=== PATIENT | female | born 1985 ===

== ENCOUNTER 2017-02-06 23:45 | Emergency (ER) | payer SELFPAY ==
[2017-02-06 23:49] VITALS: BP 131/80; PULSE 108; TEMP 98; O2SAT 98
--- NOTE | 2017-02-07 00:02 | ED PDOC ---
HPI: Psych/Substance Abuse Time Seen by Provider: 02/07/17 00:00 Chief Complaint (Nursing): Alcohol Ingestion Chief Complaint (Provider): ETOH intoxication History Per: Patient, EMS Additional Complaint(s): To ED via BLS for evaluation of alcohol intoxication. Patient was found sleeping in the hallway of an apartment building. Past Medical History Reviewed: Nursing Documentation, Vital Signs Vital Signs: Last Vital Signs Temp 98.0 F 02/06/17 23:47 Pulse 108 H 02/06/17 23:47 Resp 108 H 02/06/17 23:47 BP 131/80 02/06/17 23:47 Pulse Ox 98 02/06/17 23:47 - Medical History PMH: No Chronic Diseases - Surgical History Surgical History: No Surg Hx - Family History Family History: States: No Known Family Hx - Living Arrangements Living Arrangements: With Family - Social History Current smoker - smoking cessation education provided: No Alcohol: None Drugs: Denies - Home Medications Home Medications: Ambulatory Orders Medication Instructions Recorded Famotidine [Pepcid] 20 mg PO DAILY #14 tab 01/17/17 Ondansetron ODT [Zofran ODT] 4 mg PO TID #12 odt 01/17/17 - Allergies Allergies/Adverse Reactions: Allergies Allergy/AdvReac Type Severity Reaction Status Date / Time No Known Allergies Allergy Verified 01/17/17 04:56 Review of Systems ROS Statement: Except As Marked, All Systems Reviewed And Found Negative Physical Exam - Reviewed Nursing Documentation Reviewed: Yes Vital Signs Reviewed: Yes - Physical Exam Appears: Positive for: Well, Non-toxic, No Acute Distress Head Exam: Positive for: ATRAUMATIC, NORMAL INSPECTION, NORMOCEPHALIC Skin: Positive for: Normal Color, Warm, DRY Eye Exam: Positive for: EOMI, Normal appearance, PERRL ENT: Positive for: Normal ENT Inspection Neck: Positive for: Normal, Painless ROM Cardiovascular/Chest: Positive for: Regular Rate, Rhythm Respiratory: Positive for: CNT, Normal Breath Sounds Gastrointestinal/Abdominal: Positive for: Normal Exam, Bowel Sounds, Soft Back: Positive for: Normal Inspection Extremity: Positive for: Normal ROM Neurologic/Psych: Positive for: Alert, Oriented - ECG O2 Sat by Pulse Oximetry: 98 Medical Decision Making Medical Decision Making: Labs resulted and reviewed with pt who demonstrated full understanding Disposition - Clinical Impression Clinical Impression: Alcohol use - Patient ED Disposition Is Patient to be Admitted: No - Disposition Disposition: Routine/Home Disposition Time: 01:00 Condition: STABLE Instructions: Alcohol Intoxication (ED) Forms: [employer] (Yoruba)
[2017-02-07 07:18] VITALS: RESP 19
== END 2017-02-07 07:30 | disposition home or self-care (01) ==
LOC: H.ER 23:45 → EDBD 23:45 → H.ER 02-07 07:30
DX: F10.10 Alcohol abuse, uncomplicated (principal); Y90.8 Blood alcohol level of 240 mg/100 ml or more
CPT/HCPCS: 82948; 84702; 96372; 99284; G0480; J1630; J2060

== ENCOUNTER 2017-02-16 18:58 | Emergency (ER) | payer MEDICAID ==
[2017-02-16 18:58] VITALS: BMI 31.8
[2017-02-16 19:02] VITALS: BP 109/90; PULSE 70; RESP 18; TEMP 97.9; O2SAT 99
[2017-02-16] MEDS ORDERED: Sodium Chloride 0.9% 1,000 ML IV STA (20:06)
[2017-02-16 20:52] LABS: BASO % 0.4 % (0.0-2.0); HEMATOCRIT 35.8 % (34.0-47.0); LYMPH # 1.1 K/uL (1.0-4.3); MEAN CELL VOLUME 95.5 fl (81.0-99.0); MEAN CORPUSCULAR HEMOGLOBIN 32.1 pg (27.0-31.0); MEAN CORPUSCULAR HGB CONC 33.6 g/dL (33.0-37.0); MEAN PLATELET VOLUME 9.8 fl (7.2-11.7); MONO # 0.8 K/uL (0.0-0.8); MONO % 7.8 % (0.0-10.0); NEUT # 8.1 K/uL (1.8-7.0); NEUT % 80.8 % (50.0-75.0); RED CELL DISTRIBUTION WIDTH 13.9 % (11.5-14.5)
[2017-02-16 20:59] LABS: ALB/GLOB RATIO 1.3 (1.0-2.1); ALKALINE PHOSPHATASE 100 U/L (38-126); ALT/SGPT 69 U/L (9-52); AST/SGOT 95 U/L (14-36); BILIRUBIN,TOTAL 0.6 mg/dl (0.2-1.3); BLOOD UREA NITROGEN 9 mg/dl (7-17); CALCIUM 9.5 mg/dL (8.4-10.2); CARBON DIOXIDE 25 mmol/L (22-30); CHLORIDE 102 mmol/L (98-107); GFR AFRICAN-AMERICAN > 60; GLUCOSE,RANDOM 122 mg/dL (65-105); LIPASE 65 U/L (23-300); POTASSIUM 3.4 MMOL/L (3.6-5.0); SODIUM 142 mmol/l (132-148); TOTAL PROTEIN 8.1 G/DL (6.3-8.2)
--- NOTE | 2017-02-16 21:52 | ED PDOC ---
HPI: Abdomen <Kristina Gaffney - Last Filed: 02/19/17 08:15> Chief Complaint (Provider): Abdominal Pain History Per: Patient History/Exam Limitations: no limitations Onset/Duration Of Symptoms: Hrs Current Symptoms Are (Timing): Still Present Location Of Pain/Discomfort: Epigastric (mid epigastric) Associated Symptoms: Nausea <Carmelita Anderson - Last Filed: 02/22/17 04:12> Time Seen by Provider: 02/16/17 19:15 Chief Complaint (Nursing): Abdominal Pain Additional Complaint(s): Patient is a 31 y/o female with a past medical history of gastritis and alcohol abuse who presents to the ED complaining of mid epigastric pain and nausea. She notes that the pain feels like typical pain associated with gastritis. Patient was in [facility] earlier today for gastritis exacerbation and was medicated and discharged with Pepcid and Zofran. She states that she still feels very nauseas and that she last drank alcohol two days ago. She denies any fever or diarrhea, and has not yet followed up with a specialist. Patient vomited bilious non bloody vomit after arrival to the ED. PCP: FAMILY PROVIDER, NO (Carmelita Anderson) Past Medical History <Kristina Gaffney - Last Filed: 02/19/17 08:15> Reviewed: Historical Data, Nursing Documentation, Vital Signs - Medical History PMH: Anxiety, Gastritis Denies: HIV, HTN, Seizures, Sexually Transmitted Disease Other PMH: Alcohol abuse - Surgical History Surgical History: No Surg Hx - Family History Family History: States: No Known Family Hx, Unknown Family Hx - Social History Alcohol: Occasional Drugs: Cannabis, Other - Immunization History Hx Tetanus Toxoid Vaccination: No Hx Influenza Vaccination: No Hx Pneumococcal Vaccination: No <Carmelita Anderson - Last Filed: 02/22/17 04:12> Vital Signs: Last Vital Signs Temp 97.9 F 02/16/17 19:01 Pulse 70 02/16/17 19:01 Resp 18 02/16/17 19:01 BP 109/90 02/16/17 19:01 Pulse Ox 99 02/21/17 19:47 - Home Medications Home Medications: Ambulatory Orders Medication Instructions Recorded Escitalopram [Lexapro] 10 mg PO DAILY #30 tab 02/20/17 Famotidine [Pepcid] 20 mg PO BID #60 tab 02/20/17 Gabapentin 300 mg PO TID #90 capsule 02/20/17 - Allergies Allergies/Adverse Reactions: Allergies Allergy/AdvReac Type Severity Reaction Status Date / Time pantoprazole [From Protonix] Allergy Verified 02/19/17 03:16 Review of Systems ROS Statement: Except As Marked, All Systems Reviewed And Found Negative Constitutional: Negative for: Fever Gastrointestinal: Positive for: Nausea, Vomiting, Abdominal Pain (mid epigastric ). Negative for: Diarrhea <Carmelita Anderson Y - Last Filed: 02/22/17 04:12> Physical Exam - Reviewed Nursing Documentation Reviewed: Yes Vital Signs Reviewed: Yes - Physical Exam Appears: Positive for: No Acute Distress Head Exam: Positive for: ATRAUMATIC, NORMOCEPHALIC Skin: Positive for: Normal Color, Warm, Dry Eye Exam: Positive for: Normal appearance, EOMI, PERRL Neck: Positive for: Normal, Painless ROM, Supple Cardiovascular/Chest: Positive for: Regular Rate, Rhythm. Negative for: Murmur Respiratory: Positive for: Normal Breath Sounds. Negative for: Respiratory Distress Gastrointestinal/Abdominal: Positive for: Soft, Tenderness (slight mid epigastric tenderness) Back: Positive for: Normal Inspection. Negative for: L CVA Tenderness, R CVA Tenderness, Vertebral Tenderness Extremity: Positive for: Normal ROM. Negative for: Pedal Edema, Deformity Neurologic/Psych: Positive for: Alert, Oriented (x3). Negative for: Motor/ Sensory Deficits <Carmelita Anderson Y - Last Filed: 02/22/17 04:12> - Laboratory Results Result Diagrams: 02/16/17 20:27 02/16/17 20:27 <Kristina Gaffney - Last Filed: 02/19/17 08:15> - Laboratory Results Result Diagrams: 02/16/17 20:27 02/16/17 20:27 - ECG O2 Sat by Pulse Oximetry: 99 (RA) Pulse Ox Interpretation: Normal <Carmelita Anderson Y - Last Filed: 02/22/17 04:12> Medical Decision Making <Kristina Gaffney - Last Filed: 02/19/17 08:15> <Carmelita Anderson Y - Last Filed: 02/22/17 04:12> Medical Decision Making: Time: 20:02 Initial Impression: abd pain rule out Gastritis Initial Plan: --Beta-HCG --CMP --Lipase --CBC --Zofran Inj 4mg IV Time: 20:49 --Pepcid --Zofran Inj 4mg IV Time: 21:54 --Dilaudid 0.5mg IVP pt feels better, tolerated po i nt ED. instructed on abnormal bloodwork and need for oupt GI Scribe Attestation: Documented by Ian Leone, acting as a scribe for Carmelita Anderson MD Provider Scribe Attestation: All medical record entries made by the Scribe were at my direction and personally dictated by me. I have reviewed the chart and agree that the record accurately reflects my personal performance of the history, physical exam, medical decision making, and the department course for this patient. I have also personally directed, reviewed, and agree with the discharge instructions and disposition. (Carmelita Anderson) Disposition - Disposition Disposition Time: 08:17 <Kristina Gaffney - Last Filed: 02/19/17 08:15> - Patient ED Disposition Is Patient to be Admitted: No Counseled Patient/Family Regarding: Studies Performed, Diagnosis, Need For Followup - Disposition Disposition: Routine/Home Disposition Time: 22:00 <Carmelita Anderson - Last Filed: 02/22/17 04:12> - Clinical Impression Clinical Impression: Gastritis, Elevated LFTs, Alcohol abuse, Alcoholic gastritis, Hypokalemia due to loss of potassium - Disposition Referrals: [facility] [Outside] Bro BRADLEY,MD Erin [Medical Doctor] - Condition: IMPROVED Additional Instructions: follow up with your primary doctor in 1-2 days cotinue medications given to you at [facility] for nausea and pain you need to follow up with a specialist GI referral given for further management avoid alcohol spicy food and other triggers return to the ED with any worsening or concerning symptoms Instructions: Gastritis (ED) Forms: [employer] (Occitan) Decision To Admit - Pt Status Changed To: Hospital Disposition Of: Observation - . Bed Request Type: Med/Surg Admitting Physician: Luis Davis <Kristina Gaffney - Last Filed: 02/19/17 08:15> <Carmelita Anedrson - Last Filed: 02/22/17 04:12> - . Patient Diagnosis: Gastritis, Elevated LFTs, Alcohol abuse, Alcoholic gastritis, Hypokalemia due to loss of potassium
[2017-02-16] MEDS ORDERED: HYDROmorphone 0.5 mg/0.5 ml ISec IVP STA (21:54)
== END 2017-02-17 00:39 | disposition home or self-care (01) ==
LOC: H.ER 18:58
DX: K29.70 Gastritis, unspecified, without bleeding (principal); R94.5 Abnormal results of liver function studies; F41.9 Anxiety disorder, unspecified
CPT/HCPCS: 80053; 81025; 83690; 84702; 85025; 96374; 96375; 96376; 99283; J1170; J2405; J7040

== ENCOUNTER 2017-09-11 14:58 | Emergency (ER) | payer MEDICAID, OTHER ==
[2017-09-11 15:17] VITALS: BMI 67.8
--- NOTE | 2017-09-11 15:18 | ED PDOC ---
HPI: Psych/Substance Abuse Time Seen by Provider: 09/11/17 15:08 Chief Complaint (Provider): etoh, under arrest History Per: Patient, Other (Senior Mechanical Project Engineer) Additional Complaint(s): 31-year-old female presents in police custody for medical and psychiatric clearance. Patient has history of alcohol abuse and admits to drinking daily. Patient complains of mild intermittent chest pain ongoing for the past few days. She denies shortness of breath or dyspnea on exertion. Patient offers no other medical or psychiatric complaints at this time. Patient is requesting food tray upon arrival. PMD: none Past Medical History Reviewed: Historical Data, Nursing Documentation, Vital Signs - Medical History PMH: Anxiety, Gastritis - Family History Family History: States: Unknown Family Hx - Social History Alcohol: > 2 Drinks/Day - Home Medications Home Medications: Ambulatory Orders Medication Instructions Recorded Acetaminophen/Hydrocodone Bi 1 tab PO QID PRN #12 tab 03/21/17 [Vicodin 300 mg-5 mg] - Allergies Allergies/Adverse Reactions: Allergies Allergy/AdvReac Type Severity Reaction Status Date / Time pantoprazole [From Protonix] Allergy Verified 08/02/17 23:26 Review of Systems ROS Statement: Except As Marked, All Systems Reviewed And Found Negative Constitutional: Negative for: Fever Cardiovascular: Positive for: Chest Pain. Negative for: Palpitations Respiratory: Negative for: Cough, Shortness of Breath Gastrointestinal: Negative for: Nausea, Vomiting Psych: Positive for: Other (etoh). Negative for: Suicidal ideation Physical Exam - Reviewed Nursing Documentation Reviewed: Yes Vital Signs Reviewed: Yes - Physical Exam Appears: Positive for: Well, Non-toxic, No Acute Distress Head Exam: Positive for: ATRAUMATIC, NORMAL INSPECTION, NORMOCEPHALIC Eye Exam: Positive for: Normal appearance Cardiovascular/Chest: Positive for: Regular Rate, Rhythm Respiratory: Positive for: Normal Breath Sounds. Negative for: Wheezing, Respiratory Distress Neurologic/Psych: Positive for: Other (alert, agitated) - ECG Interpretation Of ECG: Sinus tach 102, no ST changes, reviewed by PA and ED attending O2 Sat by Pulse Oximetry: 99 Pulse Ox Interpretation: Normal Medical Decision Making Medical Decision Makin31 year old intoxicated female with chest pain, patient is under arrest, officer at bedside. 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 Patient is medically and psychiatrically stable for incarceration. She is stable for discharge with police sergeant precinct. Disposition - Clinical Impression Clinical Impression: Alcohol abuse - Patient ED Disposition Is Patient to be Admitted: No - Disposition Referrals: [facility] [Outside] Disposition: Discharged/Transfer to Law Enforcement Disposition Time: 15:52 Condition: FAIR Additional Instructions: PATIENT IS MEDICALLY AND PSYCHIATRICALLY STABLE FOR INCARCERATION. Instructions: Alcohol Abuse and Alcoholism (DC)
[2017-09-11 15:56] VITALS: BP 131/78; PULSE 89; RESP 16; TEMP 98.2
[2017-09-11 15:58] VITALS: O2SAT 99
== END 2017-09-11 16:09 ==
LOC: H.ER 14:58
DX: F10.10 Alcohol abuse, uncomplicated (principal); Z02.89 Encounter for other administrative examinations

== ENCOUNTER 2018-05-27 02:55 | Emergency (ER) | payer MEDICAID, OTHER ==
[2018-05-27 02:55] VITALS: BMI 67.8
[2018-05-27 03:05] VITALS: RESP 18; O2SAT 95
--- NOTE | 2018-05-27 03:18 | ED PDOC ---
HPI: General Adult Time Seen by Provider: 05/27/18 03:07 Chief Complaint (Nursing): Medical Clearance Chief Complaint (Provider): Medical Clearance History Per: Patient History/Exam Limitations: no limitations Current Symptoms Are (Timing): Still Present Additional Complaint(s): 32 year old female brought into the ED via [place] [employer] for medical clearance. Patient states she is going to booking, but drinks every day and is worried about going into withdrawals. Her last drink was approximately x15 hours ago. Patient denies nausea, vomiting, but feels shaky and has chest tightness. When asked if she is having any suicidal ideation, she states not now. Patient has no history of previous suicide attempts. PMD: none provided Past Medical History Reviewed: Historical Data, Nursing Documentation, Vital Signs Vital Signs: Last Vital Signs Temp Pulse 115 H 05/27/18 03:03 Resp 18 05/27/18 03:03 BP 104/56 L 05/27/18 03:03 Pulse Ox 95 05/27/18 03:03 - Medical History PMH: Anxiety, Gastritis Denies: Diabetes, Hepatitis, HIV, HTN, Chronic Kidney Disease, Seizures, Sexually Transmitted Disease - Family History Family History: States: Unknown Family Hx - Immunization History Hx Tetanus Toxoid Vaccination: No Hx Influenza Vaccination: No Hx Pneumococcal Vaccination: No - Home Medications Home Medications: Ambulatory Orders Medication Instructions Recorded RX: No Known Home Med 05/14/18 - Allergies Allergies/Adverse Reactions: Allergies Allergy/AdvReac Type Severity Reaction Status Date / Time pantoprazole [From Protonix] Allergy Verified 08/02/17 23:26 Review of Systems ROS Statement: Except As Marked, All Systems Reviewed And Found Negative Constitutional: Positive for: Other (shakiness) Cardiovascular: Positive for: Other (chest tightness) Gastrointestinal: Negative for: Nausea, Vomiting Psych: Negative for: Suicidal ideation Physical Exam - Reviewed Nursing Documentation Reviewed: Yes Vital Signs Reviewed: Yes - Physical Exam Appears: Positive for: Non-toxic, No Acute Distress Head Exam: Positive for: ATRAUMATIC, NORMOCEPHALIC Skin: Positive for: Normal Color, Warm, Dry Eye Exam: Positive for: EOMI, Normal appearance, PERRL Neck: Positive for: Normal, Painless ROM Cardiovascular/Chest: Positive for: Regular Rate, Rhythm. Negative for: Murmur Respiratory: Positive for: Normal Breath Sounds. Negative for: Respiratory Distress Gastrointestinal/Abdominal: Positive for: Normal Exam, Soft. Negative for: Tenderness Extremity: Positive for: Normal ROM (upper and lower). Negative for: Pedal Edema, Deformity Neurologic/Psych: Positive for: Alert, Oriented - Laboratory Results Result Diagrams: 05/27/18 03:35 05/27/18 03:35 - ECG O2 Sat by Pulse Oximetry: 95 (RA) Pulse Ox Interpretation: Normal Medical Decision Making Medical Decision Making: Time: 314 --Patient under PD custody for medical clearance. Will give Librium for ETOH withdrawal Plan: --basic labs --EKG --psychiatric clearance --No signs of withdrawal in vitals or on physical exam Time: 402 --Patient is psychiatrically cleared under Dr. Krishna, diagnosis adjustment disorder. Labs otherwise pending. Time: 427 --Patient is medically optimized, with alcohol in her system. Patient given Librium to prevent further ETOH withdrawal. Patient is medically and physically cleared for discharge to police custody. Scribe Attestation: Documented by Nataliia Sharma, acting as a scribe for Bety Conte MD. Provider Scribe Attestation: All medical record entries made by the Scribe were at my direction and personally dictated by me. I have reviewed the chart and agree that the record accurately reflects my personal performance of the history, physical exam, medical decision making, and the department course for this patient. I have also personally directed, reviewed, and agree with the discharge instructions and disposition. Disposition - Clinical Impression Clinical Impression: Alcohol abuse - Disposition Disposition: Routine/Home Disposition Time: 04:28 Condition: STABLE Additional Instructions: Ms Walker is medically and psychiatrically cleared for discharge to police custody. Seek professional help for alcohol/drug rehabilitation. Follow up with primary medical doctor. Instructions: Alcohol Use - When Is Drinking a Problem?, Alcohol Abuse and Alcoholism (DC), General (DC), Effects of Alcohol on Your Health Forms: [employer] [employer] [facility] (Hong Konger) Print Language: ALGERIAN
[2018-05-27 03:45] LABS: BASO # 0.1 K/uL (0.0-0.2); BASO % 1.2 % (0.0-2.0); EOS # 0.2 K/uL (0.0-0.7); EOS % 2.9 % (0.0-4.0); HEMOGLOBIN 12.4 g/dL (12.0-16.0); LYMPH # 2.3 K/uL (1.0-4.3); LYMPH % 29.7 % (20.0-40.0); MEAN CELL VOLUME 96.1 fl (81.0-99.0); MEAN CORPUSCULAR HEMOGLOBIN 32.8 pg (27.0-31.0); MEAN CORPUSCULAR HGB CONC 34.1 g/dL (33.0-37.0); MONO # 0.6 K/uL (0.0-0.8); MONO % 7.6 % (0.0-10.0); NEUT # 4.5 K/uL (1.8-7.0); NEUT % 58.6 % (50.0-75.0); NRBC % 0.1 % (0.0-0.0); RBC 3.77 Mil/uL (3.80-5.20); RED CELL DISTRIBUTION WIDTH 14.1 % (11.5-14.5); WHITE BLOOD COUNT 7.6 K/uL (4.8-10.8)
[2018-05-27 03:58] LABS: BLOOD UREA NITROGEN 5 mg/dl (7-17); GFR NON-AFRICAN AMERICAN > 60
[2018-05-27 04:51] VITALS: BP 110/75; PULSE 101
== END 2018-05-27 04:48 ==
LOC: H.ER 02:55
DX: F10.10 Alcohol abuse, uncomplicated (principal); F43.22 Adjustment disorder with anxiety; R07.89 Other chest pain

== ENCOUNTER 2018-08-04 23:16 | Emergency (ER) | payer MEDICAID ==
[2018-08-04 23:16] VITALS: BMI 67.8
[2018-08-04 23:21] VITALS: BP 149/93; PULSE 109; RESP 20; TEMP 97.8; O2SAT 100
--- NOTE | 2018-08-05 00:59 | ED PDOC ---
HPI: Psych/Substance Abuse Time Seen by Provider: 08/04/18 23:46 Chief Complaint (Nursing): Alcohol Ingestion Chief Complaint (Provider): Alcohol Ingestion History Per: Patient, EMS Modifying Factor(s): Alcohol, Marijuana Additional Complaint(s): 32 years old female brought in by [place] Police/EMS after been found intoxicated in public. Patient is heavily inebriated, arousable with strong physical stimulus. Patient reports she was in the police department but does not know why. She states she has frequent alcohol withdrawal but does not say if she has been hospitalized or had seizure for it. Patient reports her last drink was couple of hours ago but does not say what she was drinking. She admits to drinking and marijuana. Patient denies nausea or discomfort. PMD: None provided Past Medical History Reviewed: Historical Data, Nursing Documentation, Vital Signs Vital Signs: Last Vital Signs Temp 97.8 F 08/04/18 23:19 Pulse 109 H 08/04/18 23:19 Resp 20 08/04/18 23:19 BP 149/93 H 08/04/18 23:19 Pulse Ox 100 08/04/18 23:19 - Medical History PMH: Anxiety, Gastritis Denies: Diabetes, Hepatitis, HIV, HTN, Chronic Kidney Disease, Seizures, Sexually Transmitted Disease - Surgical History Surgical History: No Surg Hx - Family History Family History: States: Unknown Family Hx - Social History Current smoker - smoking cessation education provided: Yes Alcohol: Social Drugs: Cannabis (Marijuana) - Immunization History Hx Tetanus Toxoid Vaccination: No Hx Influenza Vaccination: No Hx Pneumococcal Vaccination: No - Home Medications Home Medications: Ambulatory Orders Medication Instructions Recorded No Known Home Med 05/14/18 - Allergies Allergies/Adverse Reactions: Allergies Allergy/AdvReac Type Severity Reaction Status Date / Time pantoprazole [From Protonix] Allergy RASH Verified 08/04/18 23:19 Review of Systems ROS Statement: Except As Marked, All Systems Reviewed And Found Negative Gastrointestinal: Negative for: Nausea Physical Exam - Reviewed Nursing Documentation Reviewed: Yes Vital Signs Reviewed: Yes - Physical Exam Appears: Positive for: No Acute Distress (appears disheveled and flushed) Head Exam: Positive for: ATRAUMATIC, NORMOCEPHALIC Skin: Positive for: Normal Color, Warm, Dry Eye Exam: Positive for: Normal appearance, EOMI, PERRL ENT: Positive for: Normal ENT Inspection Neck: Positive for: Normal, Painless ROM, Supple Cardiovascular/Chest: Positive for: Regular Rate, Rhythm. Negative for: Murmur Respiratory: Positive for: Normal Breath Sounds. Negative for: Respiratory Distress Gastrointestinal/Abdominal: Positive for: Normal Exam, Soft. Negative for: Tenderness Back: Positive for: Normal Inspection. Negative for: L CVA Tenderness, R CVA Tenderness Extremity: Positive for: Normal ROM. Negative for: Pedal Edema, Deformity Neurological/Psych: Positive for: Awake, Alert, Oriented (x3) - ECG O2 Sat by Pulse Oximetry: 100 (RA) Pulse Ox Interpretation: Normal Medical Decision Making Medical Decision Making: Time: 14 MDM: Alcohol intoxication --Patient is currently intoxicated --Will consider Librium if she begins to show signs of withdrawal --Reevaluated patient in couple of hours 0320 Pt ambulatory and AAOx3. Pt states she feels like she will begin to withdrawal and again requestng Librium. One dose given in the emergency department. Scribe Attestation: Documented by Pina Gresham, acting as a scribe for Bety Conte MD. Provider Scribe Attestation: All medical record entries made by the Scribe were at my direction and personally dictated by me. I have reviewed the chart and agree that the record accurately reflects my personal performance of the history, physical exam, medical decision making, and the department course for this patient. I have also personally directed, reviewed, and agree with the discharge instructions and disposition. Disposition - Clinical Impression Clinical Impression: Alcohol abuse with intoxication - Disposition Referrals: Alcoholics Anonymous [Outside] Disposition: Routine/Home Disposition Time: 03:20 Condition: IMPROVED Additional Instructions: Seek help for alcohol abuse. Follow up with primary medical doctor. Instructions: Alcohol Abuse and Alcoholism (DC), Effects of Alcohol on Your Health Forms: [employer] ([place] Islander) Print Language: CUBAN
== END 2018-08-05 03:45 | disposition home or self-care (01) ==
LOC: H.ER 23:16
DX: F10.129 Alcohol abuse with intoxication, unspecified (principal)

== ENCOUNTER 2018-09-13 09:55 | Emergency (ER) | payer MEDICAID, OTHER ==
[2018-09-13 09:57] VITALS: RESP 16; O2SAT 99; BMI 30.1
[2018-09-13] MEDS ORDERED: Sodium Chloride 0.9% 1,000 ML IV STA ×2 (10:39→14:45)
--- NOTE | 2018-09-13 11:04 | ED PDOC ---
HPI: Abdomen Time Seen by Provider: 09/13/18 10:18 Chief Complaint (Nursing): Abdominal Pain Chief Complaint (Provider): Abdominal Pain History Per: Patient History/Exam Limitations: no limitations Onset/Duration Of Symptoms: Days (x3) Current Symptoms Are (Timing): Still Present Additional Complaint(s): Patient is a 33 y/o female with a PMHx of gastritis and anxiety who presents to the ED for evaluation of diffuse abdominal pain, nausea, as well as several non-bloody, non-bilious episodes of vomiting for the past three days. Patient also complains of right-sided back pain for the past one week. Furthermore, patient claims she has been experiencing generalized weakness. Patient claims she vomits after food or fluid intake. Patient denies diarrhea, bloody stools, dysuria, and fever. Of note, patient was binge drinking three days prior to onset of symptoms. PCP: None Past Medical History Reviewed: Historical Data, Nursing Documentation, Vital Signs Vital Signs: Last Vital Signs Temp 98.1 F 09/13/18 09:57 Pulse 63 09/13/18 09:57 Resp 16 09/13/18 09:57 BP 141/94 H 09/13/18 09:57 Pulse Ox 99 09/13/18 09:57 - Medical History PMH: Anxiety, Gastritis Denies: Diabetes, Hepatitis, HIV, HTN, Chronic Kidney Disease, Seizures, Sexually Transmitted Disease - Surgical History Surgical History: No Surg Hx - Family History Family History: States: Unknown Family Hx - Social History Alcohol: > 2 Drinks/Day - Immunization History Hx Tetanus Toxoid Vaccination: No Hx Influenza Vaccination: No Hx Pneumococcal Vaccination: No - Home Medications Home Medications: Ambulatory Orders Medication Instructions Recorded No Known Home Med 05/14/18 - Allergies Allergies/Adverse Reactions: Allergies Allergy/AdvReac Type Severity Reaction Status Date / Time pantoprazole [From Protonix] Allergy RASH Verified 09/12/18 16:24 Review of Systems ROS Statement: Except As Marked, All Systems Reviewed And Found Negative Constitutional: Positive for: Weakness (generalized). Negative for: Fever Gastrointestinal: Positive for: Nausea, Vomiting (non-bloody, non-bilious), Abdominal Pain (diffuse). Negative for: Diarrhea, Hematochezia Genitourinary Female: Negative for: Dysuria Musculoskeletal: Positive for: Back Pain (right-sided) Physical Exam - Reviewed Nursing Documentation Reviewed: Yes Vital Signs Reviewed: Yes - Physical Exam Appears: Positive for: No Acute Distress Head Exam: Positive for: ATRAUMATIC, NORMAL INSPECTION, NORMOCEPHALIC Skin: Positive for: Normal Color, Warm, DRY Eye Exam: Positive for: EOMI, Normal appearance, PERRL Neck: Positive for: Normal, Painless ROM, Supple Cardiovascular/Chest: Positive for: Regular Rate, Rhythm. Negative for: Murmur Respiratory: Positive for: Normal Breath Sounds. Negative for: Respiratory Distress Gastrointestinal/Abdominal: Positive for: Normal Exam, Soft, Tenderness (epigastric) Back: Positive for: Normal Inspection, R CVA Tenderness. Negative for: L CVA Tenderness Extremity: Positive for: Normal ROM. Negative for: Pedal Edema, Deformity Neurological/Psych: Positive for: Awake, Alert, Oriented (x3) - Laboratory Results Result Diagrams: 09/13/18 11:50 09/13/18 11:50 - ECG O2 Sat by Pulse Oximetry: 99 (RA) Pulse Ox Interpretation: Normal - Progress Re-evaluation Time: 15:12 Condition: Re-examined, Improved Medical Decision Making Medical Decision Making: Time: 1039 impression: Abdominal Pain, Vomiting, and Alcohol Abuse DDx includes but not limited to acute gastritis, pancreatitis, small bowel obst ruction, UTI, and biliary disease. Plan: CT Abdomen & Pelvis IV Contrast Only CMP Lipase Urine Urine Dipstick CBC IV Fluids Pepcid 20 mg IVP Toradol 15 mg IVP Zofran 4 mg IVP IV Insertion Time: 1451 FINDINGS: LOWER THORAX: Unremarkable. LIVER: Hepatomegaly. Hepatic steatosis. No focal masses. No intrahepatic bile duct dilatation or perihepatic ascites. GALLBLADDER AND BILE DUCTS: Unremarkable. PANCREAS: Unremarkable. No gross lesion or ductal dilatation. SPLEEN: Unremarkable. ADRENALS: Unremarkable. No mass. KIDNEYS AND URETERS: Unremarkable. No hydronephrosis. No solid mass. VASCULATURE: Unremarkable. No aortic aneurysm. No atherosclerotic calcification or mural plaque present. BOWEL: Thickening of the wall of the colon primarily transverse colon and contiguous splenic flexure/descending colon. Sparing of the rectum. Less pronounced changes right astrid colon. APPENDIX: A normal appendix is visualized in it's entirety. PERITONEUM: Unremarkable. No free fluid. No free air. LYMPH NODES: Unremarkable. No enlarged lymph nodes. BLADDER: Unremarkable. REPRODUCTIVE: Unremarkable. BONES: No acute fracture. OTHER FINDINGS: None. IMPRESSION: Acute colitis primarily affecting left hemicolon. Less pronounced changes ascending colon. Sparing of the rectum. Additional benign and/or incidental findings described above. Time: 1505 Patient to be discharged with Arlene. Scribe Attestation: Documented by Skinny Hopkins, acting as a scribe Maris Aparicio MD. Provider Scribe Attestation: All medical record entries made by the Scribe were at my direction and personally dictated by me. I have reviewed the chart and agree that the record accurately reflects my personal performance of the history, physical exam, medical decision making, and the department course for this patient. I have also personally directed, reviewed, and agree with the discharge instructions and disposition. Disposition - Clinical Impression Clinical Impression: Abdominal pain in female, Vomiting, Colitis - Patient ED Disposition Is Patient to be Admitted: No Doctor Will See Patient In The: Office Counseled Patient/Family Regarding: Studies Performed, Diagnosis, Need For Followup - Disposition Referrals: [facility] [Outside] Disposition: Routine/Home Disposition Time: 15:05 Condition: IMPROVED Additional Instructions: YOANNA RESTREPO, thank you for letting us take care of you today. Your provider was Mckenna Aparicio MD and you were treated for NAUSEOUS, ABD PAIN. The emergency medical care you received today was directed at your acute symptoms. If you were prescribed any medication, please fill it and take as directed. It may take several days for your symptoms to resolve. Return to the Emergency Department if your symptoms worsen, do not improve, or if you have any other problems. Please contact your doctor or call one of the physicians/clinics you have been referred to that are listed on the Patient Visit Information form that is included in your discharge packet. Bring any paperwork you were given at discharge with you along with any medications you are taking to your follow up visit. Our treatment cannot replace ongoing medical care by a primary care provider outside of the emergency department. Thank you for allowing the [facility] team to be part of your care today. If you had an X-Ray or CT scan: A Radiologist will review the ED reading if any change in treatment is needed we will contact you. If you had a blood, urine, or wound culture: It will take several days for the results, if any change in treatment is needed we will contact you. Instructions: Colitis
[2018-09-13 11:58] LABS: BASO % 0.5 % (0.0-2.0); EOS % 0.2 % (0.0-4.0); HEMOGLOBIN 12.5 g/dL (12.0-16.0); LYMPH # 0.9 K/uL (1.0-4.3); LYMPH % 9.7 % (20.0-40.0); MEAN CELL VOLUME 94.9 fl (81.0-99.0); MEAN CORPUSCULAR HEMOGLOBIN 31.4 pg (27.0-31.0); MEAN CORPUSCULAR HGB CONC 33.1 g/dL (33.0-37.0); MEAN PLATELET VOLUME 9.6 fl (7.2-11.7); MONO % 11.4 % (0.0-10.0); NEUT # 7.1 K/uL (1.8-7.0); NEUT % 78.2 % (50.0-75.0); PLATELET COUNT 175 K/uL (130-400); RBC 3.98 Mil/uL (3.80-5.20); RED CELL DISTRIBUTION WIDTH 13.9 % (11.5-14.5)
[2018-09-13 12:09] LABS: ALB/GLOB RATIO 1.2 (1.0-2.1); ALBUMIN 4.9 g/dL (3.5-5.0); ALT/SGPT 68 U/L (9-52); AST/SGOT 110 U/L (14-36); BLOOD UREA NITROGEN 9 mg/dl (7-17); CALCIUM 9.8 mg/dL (8.4-10.2); GFR NON-AFRICAN AMERICAN > 60; LIPASE 105 U/L (23-300)
[2018-09-13 12:24] LABS: EOSINOPHIL 2 % (0-7); LYMPHOCYTE 16 % (20-50); MONOCYTE 8 % (0-10); NEUTROPHIL 73 % (42-75); PLATELET ESTIMATE NORMAL (NORMAL); REACTIVE LYMPHOCYTES 1 % (0-0); TOTAL CELLS COUNTED 100
[2018-09-13 12:27] LABS: ANISOCYTOSIS SLIGHT; GIANT PLATELETS PRESENT; LARGE PLATELETS PRESENT; POIKILOCYTOSIS SLIGHT; STOMATOCYTES SLIGHT
[2018-09-13] MEDS ORDERED: Sodium Chloride 0.9% 50 ML IV ONE (13:56)
[2018-09-13] MEDS ORDERED: Iohexol 300 100 ML IJ ONE (13:56)
--- NOTE | 2018-09-13 14:54 | CT ---
Date of service: 09/13/2018 PROCEDURE: CT Abdomen and Pelvis with contrast HISTORY: Abdominal pain, vomiting. Negative test (concurrent with this examination). COMPARISON: None. TECHNIQUE: Intravenous contrast dose: 95 cc Omnipaque 300. Radiation dose: Total exam DLP = 1002.83 mGy-cm. This CT exam was performed using one or more of the following dose reduction techniques: Automated exposure control, adjustment of the mA and/or kV according to patient size, and/or use of iterative reconstruction technique. FINDINGS: LOWER THORAX: Unremarkable. LIVER: Hepatomegaly. Hepatic steatosis. No focal masses. No intrahepatic bile duct dilatation or perihepatic ascites. GALLBLADDER AND BILE DUCTS: Unremarkable. PANCREAS: Unremarkable. No gross lesion or ductal dilatation. SPLEEN: Unremarkable. ADRENALS: Unremarkable. No mass. KIDNEYS AND URETERS: Unremarkable. No hydronephrosis. No solid mass. VASCULATURE: Unremarkable. No aortic aneurysm. No atherosclerotic calcification or mural plaque present. BOWEL: Thickening of the wall of the colon primarily transverse colon and contiguous splenic flexure/descending colon. Sparing of the rectum. Less pronounced changes right astrid colon. APPENDIX: A normal appendix is visualized in it's entirety. PERITONEUM: Unremarkable. No free fluid. No free air. LYMPH NODES: Unremarkable. No enlarged lymph nodes. BLADDER: Unremarkable. REPRODUCTIVE: Unremarkable. BONES: No acute fracture. OTHER FINDINGS: None. IMPRESSION: Acute colitis primarily affecting left hemicolon. Less pronounced changes ascending colon. Sparing of the rectum. Additional benign and/or incidental findings described above.
[2018-09-13 16:38] VITALS: BP 138/77; PULSE 79; TEMP 99
== END 2018-09-13 16:26 | disposition home or self-care (01) ==
LOC: H.ER 09:55
DX: K52.9 Noninfective gastroenteritis and colitis, unspecified (principal); R11.10 Vomiting, unspecified; F10.10 Alcohol abuse, uncomplicated
CPT/HCPCS: 74177; 80053; 81025; 83690; 85025; 96361; 96374; 96375; 99284; J1885; J2405; J7030; Q9967